=== PATIENT | male | born 1985 | race Caucasian/White ===

== ENCOUNTER 2024-03-14 18:46 | Emergency (ER) | payer SELFPAY ==
[~2024-03-14] VITALS: Ht 180.3 cm; Wt 100.0 kg
[2024-03-14 18:56] VITALS: O2SAT 98
[2024-03-14 21:34] VITALS: BP 138/88; PULSE 97; RESP 16; TEMP 97.8
== END 2024-03-14 21:37 | disposition home or self-care (01) ==
LOC: ER 18:46
DX: F10.129 Alcohol abuse with intoxication, unspecified (principal); R06.02 Shortness of breath; Y90.9 Presence of alcohol in blood, level not specified
CPT/HCPCS: 71045; 93005; 99283